=== PATIENT | male | born 1940 | race Caucasian/White ===

== ENCOUNTER → 2019-06-04 09:38 | Outpatient (BNVA) | payer MEDICARE, OTHER, SELFPAY | PROVIDERS: Family Provider Family Medicine; PCP Family Medicine; Referring Provider Family Medicine; Visit Provider Internal Medicine Rheumatology | DX: M32.9 Systemic lupus erythematosus, unspecified (principal); M05.79 Rheumatoid arthritis with rheumatoid factor of multiple sites without organ or systems involvement; Z79.52 Long term (current) use of systemic steroids; Z79.01 Long term (current) use of anticoagulants | CPT/HCPCS: 99213 ==

== ENCOUNTER 2021-12-10 12:46 | Emergency (ER) | payer MEDICARE, SELFPAY ==
[2021-12-10 12:53] VITALS: BP 172/108; PULSE 77; RESP 18; O2SAT 94; BMI 30.4
[2021-12-10 12:58] VITALS: BP 173/105; PULSE 71; O2SAT 95
--- NOTE | 2021-12-10 13:06 | CTR_ITS ---
PROCEDURE INFORMATION: Exam: CT Abdomen And Pelvis Without Contrast Exam date and time: 12/10/2021 1:39 PM Age: 81 years old Clinical indication: Abdominal pain; Flank; Right; TECHNIQUE: Imaging protocol: Computed tomography of the abdomen and pelvis without contrast. Radiation optimization: All CT scans at this facility use at least one of these dose optimization techniques: automated exposure control; mA and/or kV adjustment per patient size (includes targeted exams where dose is matched to clinical indication); or iterative reconstruction. COMPARISON: CT Abdomen/Pelvis Renal [id number] 11/12/2015 11:53 PM RADIATION DOSE METRICS: Total DLP (mGy-cm): 924.88 FINDINGS: Lungs: There are pulmonary parenchymal calcifications consistent with remote granulomatous organism exposure. Heart: Multivessel atherosclerotic disease which involves the coronary arteries. Diaphragm: Small hiatal hernia. Liver: Normal. No mass. Gallbladder and bile ducts: Normal. No calcified stones. No ductal dilation. Pancreas: Normal. No ductal dilation. Spleen: Normal. No splenomegaly. Adrenal glands: Normal. No mass. Kidneys and ureters: There are small nonobstructing right renal calculi the larger of which measures 3 mm. Stomach and bowel: Normal variant interposition of the colon anterior to the liver. This can be associated with abdominal pain. There is diverticulosis of the colon without evidence of diverticulitis. Appendix: A normal appendix is identified. Intraperitoneal space: See Stomach and bowel finding. Vasculature: There is an IVC filter in place at the L3 level. Lymph nodes: There are calcified mediastinal and perihilar lymph nodes consistent with prior granulomatous exposure. Urinary bladder: Unremarkable as visualized. Reproductive: Unremarkable as visualized. Bones/joints: There are degenerative changes in the visualized spine most severe in the lumbar spine. Mild grade 1 retrolisthesis of L2 on L3, L3 on L4, and L4 on L5. Grade 1 anterolisthesis of L5 on S1. There are lower lumbar broad-based disc osteophyte complexes contributing to canal and bilateral neural foramina narrowing. Soft tissues: Tiny fat containing umbilical hernia. There is a lipoma between the right gluteus minimus and medius muscle measuring 7.8 cm in the transverse oblique dimension. CT/CT abdomen pelvis wo con [id number] IMPRESSION: 1. Normal variant interposition of the colon anterior to the liver. This can be associated with abdominal pain. 2. There are lower lumbar broad-based disc osteophyte complexes contributing to canal and bilateral neural foraminal narrowing. 3. Nonobstructing right renal calculi the larger of which measures 3 mm. COMMENTS: For patients with an IVC filter, recommend assessment for a management plan for the patient's IVC filter. If there is no established management plan, recommend referral to an interventional clinician on a nonemergent basis for evaluation.
--- NOTE | 2021-12-10 13:06 | ED_ITS ---
HPI - Abdominal Pain General: Chief Complaint: Abdominal Pain Stated Complaint: Abd Pains Time Seen by Provider: 12/10/21 13:01 Source: patient Mode of arrival: ambulatory Limitations: no limitations History of Present Illness: 81-year-old male with a history of lupus presents to the ER today for abdominal pain x24 hours. Patient reports the pain started on the left side yesterday and has moved to the right side. Patient describes the pain more as being in the right flank within the abdomen. He reports the pain is intermittent and seems to come and go. When he does have it is a sharp stabbing pain. Patient denies any nausea or vomiting associated. Denies any diarrhea or constipation or change in bowel or bladder habits. Denies any pain with urination. Denies any recent illness. Review of Systems General: Reports: 10 or more systems reviewed and unremarkable except in HPI and below PFSH ED PFSH: Medical History Systemic lupus erythematosus, unspecified Social History Smoking and tobacco status: never smoked Alcohol intake: never Lives independently: Yes Marital status: / History of recent travel: No (06/04/19) Physical Exam Const: COMMON NORMALS: average body habitus, patient oriented x3, no limitations, alert and well nourished Eye: COMMON NORMALS: conjunctivae normal CONJUNCTIVA: Yes conjunctivae normal Resp: COMMON NORMALS: normal respiratory effort, No retractions and clear to auscultation bilaterally EFFORT & INSPECTION: Yes able to speak in complete sentences and Yes other (R flank pain with deep inspiration) AUSCULTATION: clear to auscultation bilaterally Cardio: COMMON NORMALS: regular rate and regular rhythm RATE: regular rate RHYTHM: regular rhythm GI: COMMON NORMALS: Normal to inspection, nondistended, normoactive bowel sounds present and Soft to palpation PALPATION: Yes Soft to palpation OTHER: Patient has mild right lower quadrant tenderness and right flank tenderness. No CVA tenderness noted : COMMON NORMALS: Yes no CVA tenderness BLADDER/KIDNEY EXAM: Yes no CVA tenderness Back/Pelvis: COMMON NORMALS: no CVA tenderness and no thoracic nor lumbar tenderness; negative for thoraco-lumbar ROM normal (Patient does have pain with range of motion of the low back. This pain is ) Extremity: COMMON NORMALS: normal to inspection Neuro: COMMON NORMALS: patient oriented x3 SENSORIUM/ORIENTATION: Yes alert Psych: COMMON NORMALS: mental status grossly normal, Normal thought process present and cooperative THOUGHT PROCESS: Normal thought process present Skin: COMMON NORMALS: no rashes or lesions noted and no wounds GENERAL SKIN EXAM: no rashes or lesions noted Course ED course: 81-year-old male with a history of lupus presents to the ER today for right flank pain. Patient reports that started on the left side and has migrated to the right side. Describes this more in the flank than in the abdomen. Patient reports is intermittent and a sharp stabbing pain. Patient reports normal bowel movements. Denies any nausea or vomiting. Denies any fever or chills. Denies any pain with urination. We will do labs and a CT at this time. Symptoms and physical exam indicate a more probable kidney stone versus acute abdomen issue. Vital Signs: Vital signs: Vital Signs Pulse Rate 77 12/10/21 12:53 Respiratory Rate 18 12/10/21 12:53 Blood Pressure 172/108 12/10/21 12:53 Pulse Oximetry 94 12/10/21 12:53 Oxygen Delivery Me thod 12/10/21 12:53 MDM - Abdominal Pain Medical Decision Making 81-year-old male with a history of lupus presents to the ER today for right flank pain. Patient reports that started on the left side and has migrated to the right side. Describes this more in the flank than in the abdomen. Patient reports is intermittent and a sharp stabbing pain. Patient reports normal bowel movements. Denies any nausea or vomiting. Denies any fever or chills. Denies any pain with urination. We will do labs and a CT at this time. Symptoms and physical exam indicate a more probable kidney stone versus acute abdomen issue. Patient had CT performed and did not show any acute issues. Patient has bilateral neuroforaminal narrowing and broad-based disc disease. Based on normal labs and imaging, likely this is more musculoskeletal in nature. Patient requested a Kenalog shot. He reports in the past when he had back issues they would do a steroid shot and it seemed to help. We will also do naproxen for the next 10 days or so to see if that helps with pain. If patient's pain continues to worsen or is not improving in the next 3 to 5 days, follow-up with PCP. Return to the ER with any new or worsening symptoms. Patient verbalized underst anding and was in agreement with the treatment plan. Lab Data : 12/10/21 13:21 12/10/21 13:21 Labs/Radiology: Radiology Impressions Abdomen/Pelvis CT 12/10/21 13:06 IMPRESSION: 1. Normal variant interposition of the colon anterior to the liver. This can be associated with abdominal pain. 2. There are lower lumbar broad-based disc osteophyte complexes contributing to canal and bilateral neural foraminal narrowing. 3. Nonobstructing right renal calculi the larger of which measures 3 mm. COMMENTS: For patients with an IVC filter, recommend assessment for a management plan for the patient's IVC filter. If there is no established management plan, recommend referral to an interventional clinician on a nonemergent basis for evaluation. Laboratory Results WBC 7.1 10^3/uL (4.0-10.0) 12/10/21 13:21 RBC 5.00 10^6/uL (4.1-5.3) 12/10/21 13:21 Hgb 14.6 g/dL (11.7-16.6) 12/10/21 13:21 Hct 45.6 % (42.0-52.0) 12/10/21 13:21 MCV 91.2 fl (80-94) 12/10/21 13:21 MCH 29.2 pg (28.0-34.0) 12/10/21 13:21 MCHC 32.0 g/dL (30.0-36.0) 12/10/21 13:21 RDW 13.3 % (12.1-15.1) 12/10/21 13:21 Plt Count 164 10^3/cmm (130-400) 12/10/21 13:21 MPV 10.7 fL (7.4-10.4) H 12/10/21 13:21 Neut % (Auto) 76.0 % 12/10/21 13:21 Lymph % (Auto) 11.6 % 12/10/21 13:21 Garfield % (Auto) 10.6 % 12/10/21 13:21 Eos % (Auto) 1.0 % 12/10/21 13:21 Baso % (Auto) 0.4 % 12/10/21 13:21 Neut # (Auto) 5.35 10^3/uL (1.8-7.7) 12/10/21 13:21 Lymph # (Auto) 0.8 10^3/uL (0.8-4.8) 12/10/21 13:21 Garfield # (Auto) 0.8 10^3/uL (0.2-0.9) 12/10/21 13:21 Eos # (Auto) 0.1 10^3/uL (0.0-0.8) 12/10/21 13:21 Baso # (Auto) 0.0 10^3/uL (0.0-0.1) 12/10/21 13:21 Nucleated RBC % (auto) 0 % 12/10/21 13:21 Nucleated RBCs # 0.0 /100WBC 12/10/21 13:21 Sodium 141 mmol/L (136-145) 12/10/21 13:21 Potassium 4.3 mmol/L (3.5-5.1) 12/10/21 13:21 Chloride 102 mmol/L (98-107) 12/10/21 13:21 Carbon Dioxide 31 mmol/L (22-29) H 12/10/21 13:21 Anion Gap 12.3 (5-19) 12/10/21 13:21 BUN 12 mg/dL (8-23) 12/10/21 13:21 Creatinine 1.2 mg/dL (0.7-1.2) 12/10/21 13:21 GFR Calculation Not Reportable 12/10/21 13:21 Glucose 107 mg/dL (65-115) 12/10/21 13:21 Calculated Osmolality 292 mOsm/kg (285-295) 12/10/21 13:21 Calcium 9.2 mg/dL (8.5-10.5) 12/10/21 13:21 Total Bilirubin 0.7 mg/dL (0.15-1.2) 12/10/21 13:21 AST 16 U/L (0-40) 12/10/21 13:21 ALT 14 U/L (0-41) 12/10/21 13:21 Alkaline Phosphatase 51 IU/L (40-130) 12/10/21 13:21 Total Protein 6.0 g/dL (6.6-8.7) L 12/10/21 13:21 Albumin 3.7 g/dL (3.5-5.2) 12/10/21 13:21 Globulin 2.3 g/dL (1.3-4.6) 12/10/21 13:21 Lipase 15 U/L (13-60) 12/10/21 13:21 Urine Color Yellow (Yellow) 12/10/21 13:56 Urine Appearance Clear (CLEAR) 12/10/21 13:56 Urine pH 6 (5-7) 12/10/21 13:56 Ur Specific Eckert 1.015 (1.005-1.030) 12/10/21 13:56 Urine Protein Neg (Negative) 12/10/21 13:56 Urine Glucose (UA) Norm (Normal) 12/10/21 13:56 Urine Ketones Negative (Negative) 12/10/21 13:56 Urine Blood Neg (Negative) 12/10/21 13:56 Urine Nitrate Negative (Negative) 12/10/21 13:56 Urine Bilirubin Neg (Negative) 12/10/21 13:56 Urine Urobilinogen Norm mg/dL (Negative) 12/10/21 13:56 Ur Leukocyte Esterase Negative (Negative) 12/10/21 13:56 Critical Care Time Critical Care Time: Critical Care Time: No Discharge Plan Discharge Patient Disposition: Home Clinical Impression: Acute exacerbation of chronic low back pain Condition: Stable Prescriptions: New naproxen 500 mg tablet 500 mg PO BID PRN (Reason: pain) 10 Days Qty: 20 0RF No Action hydroxychloroquine 200 mg tablet 200 mg PO BID prednisone 5 mg tablet 5 mg PO QDAY tamsulosin [Flomax] 0.4 mg capsule 0.4 mg PO QDAY valsartan 40 mg tablet 40 mg PO DAILY Eliquis 5 mg tablet 5 mg PO BID rosuvastatin [Crestor] 10 mg tablet 10 mg PO QDAY calcium carbonate [Calcium 600] 600 mg calcium (1,500 mg) tablet 600 mg PO BID ranitidine HCl [Zantac] 150 mg tablet 150 mg PO QDAY Discharge Orders: Discharge ED (Routine); Ordered 12/10/21 Ordered By: Ligia Ro Referrals: Gokul Olguin MD [Primary Care Provider] - Discharge Diet: Usual diet Discharge Activity: Increase activity as tolerated Patient Instructions: Opioid Safety Activity Restrictions/Additional Instructions: Take naproxen as prescribed. Continue home medications and take tramadol as prescribed at home as needed. Follow-up with your doctor in 3 to 5 days if no improvement. Return to the ER with new or worsening symptoms. Coding Level of Care Code ED Turbinated [employer]inder for Amelie Vinson Exam Comprehensive
[2021-12-10 13:36] LABS: Basophils % 0.4 %; Eosinophils # 0.1 10^3/uL (0.0-0.8); Hematocrit 45.6 % (42.0-52.0); Hemoglobin 14.6 g/dL (11.7-16.6); Lymphocytes # 0.8 10^3/uL (0.8-4.8); Lymphocytes % 11.6 %; Mean Corpuscular Hemoglobin 29.2 pg (28.0-34.0); Mean Corpuscular Volume 91.2 fl (80-94); Mean Platelet Volume 10.7 fL (7.4-10.4); Monocytes # 0.8 10^3/uL (0.2-0.9); Monocytes % 10.6 %; Neutrophils # 5.35 10^3/uL (1.8-7.7); Nucleated Red Blood Cells % 0 %; Platelet Count 164 10^3/cmm (130-400); Red Cell Distribution Width 13.3 % (12.1-15.1); White Blood Count 7.1 10^3/uL (4.0-10.0)
[2021-12-10 13:55] LABS: Alanine Aminotransferase 14 U/L (0-41); Albumin Level 3.7 g/dL (3.5-5.2); Alkaline Phosphatase 51 IU/L (40-130); Anion Gap 12.3 (5-19); Aspartate Amino Transferase 16 U/L (0-40); Blood Urea Nitrogen 12 mg/dL (8-23); Calcium 9.2 mg/dL (8.5-10.5); Carbon Dioxide 31 mmol/L (22-29); Chloride 102 mmol/L (98-107); Globulin 2.3 g/dL (1.3-4.6); Glucose 107 mg/dL (65-115); Lipase 15 U/L (13-60); Osmolality Calculated 292 mOsm/kg (285-295); Potassium 4.3 mmol/L (3.5-5.1); Sodium 141 mmol/L (136-145); Total Bilirubin 0.7 mg/dL (0.15-1.2)
[2021-12-10 13:58] VITALS: BP 157/97; PULSE 75; O2SAT 93
[2021-12-10 14:10] LABS: Add Urine Microscopic? NO; Charge for UA Resulting for Rev
[2021-12-10 14:14] LABS: Bilirubin Urine Neg (Negative); Blood Urine Neg (Negative); Glucose Urine UA Norm (Normal); Ketones Urine Negative (Negative); Leukocyte Esterase Urine Negative (Negative); Nitrate Urine Negative (Negative); Protein Urine Neg (Negative); Specific Gravity, Urine 1.015 (1.005-1.030); Urine Appearance Clear (CLEAR); Urine Color Yellow (Yellow); Urobilinogen Urine Norm (Negative); pH Urine 6 (5-7)
[2021-12-10 15:00] VITALS: BP 157/91; PULSE 64; O2SAT 93
[2021-12-10] MEDS: triamcinolone 40 mg/mL SDV IM (15:05)
[2021-12-10 15:26] VITALS: BP 156/91; PULSE 60; O2SAT 93
== END 2021-12-10 15:20 | disposition home or self-care (01) ==
PROVIDERS: Emergency Provider Physician Assistant; PCP Family Medicine
DX: G89.29 Other chronic pain (principal); M54.50 Low back pain, unspecified; Z79.01 Long term (current) use of anticoagulants; M32.9 Systemic lupus erythematosus, unspecified
CPT/HCPCS: 74176; 80053; 81003; 83690; 85025; 96372; 99284; J3301

== ENCOUNTER → 2022-01-11 12:42 | Outpatient (BNVA) | payer MEDICARE, SELFPAY | PROVIDERS: PCP Family Medicine; Visit Provider Family Medicine | DX: L98.9 Disorder of the skin and subcutaneous tissue, unspecified (principal) | CPT/HCPCS: 88304 ==

== ENCOUNTER → 2022-09-11 12:33 | Outpatient (BNVA) | payer MEDICARE, SELFPAY | PROVIDERS: PCP Family Medicine; Visit Provider Family Medicine | DX: I10 Essential (primary) hypertension (principal); N40.0 Benign prostatic hyperplasia without lower urinary tract symptoms | CPT/HCPCS: 80053; 85025 ==

== ENCOUNTER → 2022-10-03 13:21 | Outpatient (BNVA) | payer MEDICARE, SELFPAY | PROVIDERS: PCP Family Medicine; Visit Provider Family Medicine | DX: N40.0 Benign prostatic hyperplasia without lower urinary tract symptoms | CPT/HCPCS: 84153; 88304 ==

== ENCOUNTER → 2023-02-27 11:15 | Outpatient (BNVA) | payer MEDICARE, SELFPAY | PROVIDERS: PCP Family Medicine; Visit Provider Family Medicine | DX: R13.10 Dysphagia, unspecified (principal); R35.0 Frequency of micturition; I10 Essential (primary) hypertension; M32.9 Systemic lupus erythematosus, unspecified; Z00.00 Encounter for general adult medical examination without abnormal findings; Z23 Encounter for immunization | CPT/HCPCS: 80053; 80061; 84153; 85025 ==

== ENCOUNTER 2023-03-25 08:00 | Outpatient (CLI) | payer MEDICARE, SELFPAY ==
--- NOTE | 2023-03-25 08:09 | FL_ITS ---
WS: [id number] Exam: FL upper GI w air* [id number] Date/Time of Exam: 03/25/2023 8:30 AM Reason For Exam: DYSPHAGIA Compared to abdominal CT scan performed 12/10/2021. Swallowing function was normal. Mild tertiary esophageal spasm. Small hiatal hernia. The stomach is f reely distensible. No sign of gastric mass or ulceration. The duodenal bulb is smooth in contour. Pro minent duodenal diverticulum involves the second segment of the duodenal C-loop. There is also wideni ng of the duodenal C-loop. Barium spills freely into the proximal small bowel. An IVC filter is in pl [place]. IMPRESSION: 1. Small hiatal hernia. Duodenal diverticulum. 2. No sign of gastric or duodenal ulcer. Mild esophageal spasm. 3. Widening of the duodenal C-loop which might be seen with pancreatic mass or enlargement. Recommendations: Ultrasound the pancreas recommended for further work-up.
== END 2023-03-25 08:01 | disposition home or self-care (01) ==
PROVIDERS: PCP Family Medicine; Visit Provider Family Medicine
DX: R13.10 Dysphagia, unspecified (principal); K44.9 Diaphragmatic hernia without obstruction or gangrene
CPT/HCPCS: 74246

== ENCOUNTER → 2023-09-17 09:22 | Outpatient (BNVA) | payer MEDICARE, SELFPAY | PROVIDERS: PCP Family Medicine; Visit Provider Family Medicine | DX: R35.0 Frequency of micturition (principal) | CPT/HCPCS: 81000 ==

== ENCOUNTER → 2024-02-13 10:43 | Outpatient (BNVA) | payer MEDICARE, SELFPAY | PROVIDERS: PCP Family Medicine; Visit Provider Family Medicine | DX: I10 Essential (primary) hypertension (principal); N40.0 Benign prostatic hyperplasia without lower urinary tract symptoms; M32.9 Systemic lupus erythematosus, unspecified; R35.0 Frequency of micturition | CPT/HCPCS: 80053; 80061; 84153; 85025 ==

== ENCOUNTER → 2024-09-01 11:05 | Outpatient (BNVA) | payer MEDICARE, SELFPAY | PROVIDERS: PCP Family Medicine; Visit Provider Family Medicine | DX: R35.0 Frequency of micturition (principal); C44.92 Squamous cell carcinoma of skin, unspecified; L57.0 Actinic keratosis; N40.0 Benign prostatic hyperplasia without lower urinary tract symptoms | CPT/HCPCS: 81000; 87086 ==

== ENCOUNTER → 2024-09-15 14:48 | Outpatient (BNVA) | payer MEDICARE, SELFPAY | PROVIDERS: PCP Family Medicine; Visit Provider Nurse Practitioner Family | DX: L57.8 Other skin changes due to chronic exposure to nonionizing radiation (principal); X32.XXXA Exposure to sunlight, initial encounter; L57.0 Actinic keratosis; L81.4 Other melanin hyperpigmentation; L82.1 Other seborrheic keratosis; Z08 Encounter for follow-up examination after completed treatment for malignant neoplasm; Z85.828 Personal history of other malignant neoplasm of skin; D48.5 Neoplasm of uncertain behavior of skin | CPT/HCPCS: 11102; 17000; 69100; 99203 ==

== ENCOUNTER → 2024-10-01 08:23 | Outpatient (BNVA) | payer MEDICARE, SELFPAY | PROVIDERS: PCP Family Medicine; Visit Provider Dermatology | DX: D04.62 Carcinoma in situ of skin of left upper limb, including shoulder (principal); D04.5 Carcinoma in situ of skin of trunk; L57.0 Actinic keratosis; C44.212 Basal cell carcinoma of skin of right ear and external auricular canal | CPT/HCPCS: 17311; 99213 ==

== ENCOUNTER 2025-02-10 12:22 | Outpatient (CLI) | payer MEDICARE, SELFPAY ==
--- NOTE | 2025-02-10 12:35 | XR_ITS ---
WS: [id number] XR shoulder RT min 2V* [id number] REASON FOR EXAM: shoulder pain FINDINGS: No fracture or focal bone lesion. Mild narrowing of the acromioclavicular joint with mild subchondral sclerosis and minimal osteophytosis. There is mild lateral downward slant orientation of the acromial process. Glenohumeral joint is not optimally demonstrated. It appears to be mildly narrowed with mild subchondral sclerosis of the glenoid and mild osteophytosis of the humeral head. Minimal sclerosis of the greater biceps tuberosity. 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 Minimal rotator cuff tendon arthropathy.
== END 2025-02-10 12:23 | disposition home or self-care (01) ==
LOC: RAD 12:25
PROVIDERS: PCP Family Medicine; Visit Provider Family Medicine
DX: M25.511 Pain in right shoulder (principal); M19.011 Primary osteoarthritis, right shoulder
CPT/HCPCS: 73030; 80053; 80061; 84153; 84443; 85025; 86140